=== PATIENT | male | born 1985 | race Caucasian/White ===

== ENCOUNTER 2024-02-18 20:04 | Emergency (ER) | payer OTHER ==
[2024-02-18 20:14] VITALS: TEMP 98.7
[2024-02-18] MEDS ORDERED: HYDROCODONE-ACETAMIN 2.5-108/5 ML SOLUTION ONE (21:03)
[2024-02-18] MEDS: HYDROCODONE-ACETAMIN 2.5-108/5 ML SOLUTION PO STA (21:04)
[2024-02-18 22:11] VITALS: O2SAT 97
[2024-02-18] MEDS ORDERED: Decadron 4 MG INJ ONE (22:12)
[2024-02-18] MEDS: Decadron 4 MG INJ IM ONE ×2 (22:15)
--- NOTE | 2024-02-18 23:13 | XRAY ---
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 TECHNIQUE: Thin axial sections of the neck region have been acquired without contrast. Coronal and sagittal reformatted images have also been acquired. One of the following dose reduction techniques was utilized for this exam: Automated exposure control, adjustment of the mA and/or kV according to patient size, and use of iterative reconstruction. FINDINGS: A 10 mm calcific density is noted in the right half of the floor of the mouth at the anatomical site of the right Keymar duct. No significant upstream duct dilatation is appreciated. No abscess or collection was seen in both submandibular glands. Both parotid glands show normal morphology, and no mass lesion is seen. Reactive appearing level l-lll cervical lymph nodes are seen bilaterally, largest on the right measures 10 mm in the short axis at level ll. The aerodigestive tract is intact. Both orbits show normal morphology. Minimal mucosal thickening is noted in the right maxillary sinus, the rest of the paranasal sinuses and mastoid air cells are normally aerated. No acute fracture or dislocation is noted in visualized bones. Both temporomandibular joints show preserved joint spaces with intact articular surfaces. No lytic or sclerotic bony lesion was seen. IMPRESSION: A 10 mm calcific density is noted in the right half of the floor of the mouth at the anatomical site of the right Keymar duct, suggestive of sialolithiasis. No collection or abscess was seen in the right submandibular gland. Please correlate clinically. [facility] ER was called at [phone] at 10:07 PM [employer], 02/18/[address] Beckett was informed about the important medical findings. Electronically Signed by: Kash Shabazz MD. (02/18/2024 23:09:31 EDT)
--- NOTE | 2024-02-18 23:28 | ERPHSYRPT ---
- History of Present Illness Time Seen by Provider: 02/18/24 20:26 Source: patient Exam Limitations: no limitations Patient Subjective Stated Complaint: sore throat, hurts to swallow, feel like it's my tonsils, having trouble even swallowing water Triage Nursing Assessment: Pt ambulated into ER without diff, and daughter at bedside. Pt is alert and oriented x4. Pt c/o sore throat x3 days which is worsening. Pt states, "I can hardly swallow water at this time, I feel like it's my tonsils". Tonsil is red and enlarged. Physician History: 38-year-old healthy male presented in the ER with complaint of sore throat for the last 3 days with progressive worsening. Patient reports having difficulty swallowing and even drinking water. Denies fever or chills. No difficulty breathing. No known sick contact. Allergies/Adverse Reactions: Penicillins Allergy (Severe, Verified 02/18/24 20:25) Anaphylactic Reaction Hx Tetanus, Diphtheria Vaccination/Date Given: Yes Hx Influenza Vaccination/Date Given: Yes Hx Pneumococcal Vaccination/Date Given: No Immunizations Up to Date: Yes Travel Risk - International Travel Have you traveled outside of the country in past 3 weeks: No - Emerging Infectious Disease Are you exhibiting symptoms associated with any current EIDs: No - Review of Systems Constitutional: No Symptoms Ears, Nose, & Throat: Throat Pain, Throat Swelling, Painful Swallowing Respiratory: No Symptoms Cardiac: No Symptoms Abdominal/Gastrointestinal: No Symptoms Musculoskeletal: No Symptoms Skin: No Symptoms Neurological: No Symptoms Hematologic/Lymphatic: No Symptoms Immunological/Allergic: No Symptoms - Past Medical History Pertinent Past Medical History: Yes Neurological History: No Pertinent History ENT History: No Pertinent History Cardiac History: No Pertinent History Respiratory History: No Pertinent History Endocrine Medical History: No Pertinent History Musculoskeletal History: No Pertinent History GI Medical History: No Pertinent History History: No Pertinent History Psycho-Social History: No Pertinent History Male Reproductive Disorders: No Pertinent History Other Medical History: tinnitis - Past Surgical History Past Surgical History: Yes Neuro Surgical History: No Pertinent History Cardiac: No Pertinent History Respiratory: No Pertinent History Gastrointestinal: No Pertinent History Genitourinary: No Pertinent History Musculoskeletal: Other Male Surgical History: No Pertinent History Other Surgical History: lt knee 3 times, no anesthesia (in [place]) - Social History Smoking Status: Former smoker Exposure to second hand smoke: No Drug Use: none - Social Determinants of Health Will the patient participate in the screening: Yes Do you worry about a steady place to live?: No Do you have any problems with any of the following?: No known problems In the past 12 months,have you had to go without utilities?: No Transportation Issues: No Has anyone in your support network made you feel unsafe?: No Have you or anyone in your house had to go without enough: No - Nursing Vital Signs Nursing Vital Signs: Initial Vital Signs Pulse Rate 67 02/18/24 20:10 Blood Pressure 110/68 02/18/24 20:10 O2 Sat by Pulse Oximetry 95 02/18/24 20:10 Pain Scale Pain Intensity 4 - Physical Exam General Appearance: no apparent distress Ear Exam: bilateral ear: auricle normal, canal normal, TM normal Nasal Exam: normal inspection Throat Exam: moist mucus membranes, pharynx swelling, pharynx tenderness, uvula swelling, No tonsillar exudate, No tonsillar swelling Neck Exam: normal inspection, non-tender, supple, full range of motion, lymphadenopathy (L) Cardiovascular/Respiratory Exam: normal breath sounds, regular rate/rhythm Neurologic Exam: alert, oriented x 3, cooperative, 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 Skin Exam: normal color SpO2 Interpretation: normal SpO2: 97 O2 Delivery: Room Air Ordered Tests: Active Orders 24 hr Category Date Time Status NECK WO CONTRAST [CT] Stat Exams 02/18/24 21:10 Completed Medication Summary Discontinued Medications Generic Name Dose Route Start Last Admin Trade Name Perla PRN Reason Stop Dose Admin Hydrocodone Bitart/Acetaminophen 15 ml 02/18/24 20:59 02/18/24 21:04 Hydrocodone/Acetaminophen 5 Ml Udcup PO 02/18/24 21:00 15 ml STAT STA Administration Hydrocodone Bitart/Acetaminophen Confirm 02/18/24 21:03 Hydrocodone/Acetaminophen 5 Ml Udcup Administered 02/18/24 21:04 Dose 15 ml .ROUTE .STK-MED ONE Dexamethasone Sodium Phosphate 4 mg 02/18/24 22:13 02/18/24 22:15 Dexamethasone Sod Phosphate 4 Mg/Ml Ml IM 02/18/24 22:14 4 mg STAT ONE Administration Dexamethasone Sodium Phosphate Confirm 02/18/24 22:12 Dexamethasone Sod Phosphate 4 Mg/Ml Ml Administered 02/18/24 22:13 Dose 4 mg .ROUTE .STK-MED ONE Lab/Rad Data: Laboratory Results 02/18/24 Range/Units 21:10 Group A Strep Antibody NOT DETECTED (NEGATIVE) - Progress Progress: improved Progress Note: 02/18/24 23:25 38-year-old is evaluated in ER for sore throat and difficulty swallowing with no difficulty breathing. Patient is given symptomatic treatment with liquid Smith and Decadron, reevaluation feeling better. Has negative strep. Patient is afebrile. Lungs bilateral clear to auscultation. I have obtained CT soft tissue neck without contrast which is negative for any abscess swelling/cellulitis/tonsillitis but does have a mandibular gland sialolithiasis. I believe patient's symptoms are more of a secondary to viral etiology pharyngitis, will continue with steroids and symptomatic care to go home. Discussed signs symptoms of worsening needing return to ER which she seems understanding. Stable for discharge. Counseled pt/family regarding: diagnosis, need for follow-up, rad results Medical Desision Making - Independent Historian Additional History obtained from: Spouse - Diagnostic Testing Diagnostic test were ordered, analyzed, and reviewed by me: Yes Radiological Interpretation: Reviewed by me, Teleradiologist Report - Risk of complications The pt has a mod risk of morbidity or mortality based on: Need for prescription drug management - Departure Departure Disposition: Home Clinical Impression: Acute pharyngitis, Sialolithiasis Condition: Stable Critical Care Time: No Referrals: DOCTOR,NO FAMILY [Primary Care Provider] - Follow up with PCP 1 day Instructions: Viral Pharyngitis (DC), Salivary Gland Stones Additional Instructions: Take Tylenol/ibuprofen as needed. Use lemon candy. Follow-up with primary care for reevaluation. Return to ER for worsening of symptoms, difficulty swallowing/breathing or if develop fever chills etc. Forms: Work/School Release Form Prescriptions: Hydrocodone/Acetaminophen [Hydrocodone-Acetamin 5-325 mg] 1 tab PO Q6HPRN PRN 3 Days #12 tablet MDD 4 PRN Reason: Pain Prednisone 20 mg [Deltasone 20 mg] 60 mg PO DAILY 5 Days #15 tablet
[2024-02-18 23:30] VITALS: BP 112/61; PULSE 62; RESP 18
== END 2024-02-18 23:40 | disposition home or self-care (01) ==
LOC: ED 20:04
DX: J02.9 Acute pharyngitis, unspecified (principal); K11.5 Sialolithiasis; Z79.891 Long term (current) use of opiate analgesic; Z79.52 Long term (current) use of systemic steroids
CPT/HCPCS: 70490; 87651; 96372; 99283; J1100; A9270-GY